=== PATIENT | male | born 1950 | race Caucasian/White ===

== ENCOUNTER 2020-11-16 09:09 | Outpatient (CLI) | payer MEDICARE, OTHER | END 2020-11-16 09:10 | disposition home or self-care (01) | LOC: DI 09:09 | PROVIDERS: ATTEND Student in an Organized Health Care Education/Training Program | DX: I10 Essential (primary) hypertension (principal); Z87.891 Personal history of nicotine dependence; I35.8 Other nonrheumatic aortic valve disorders | CPT/HCPCS: 93306 ==

== ENCOUNTER 2022-03-15 22:47 | Emergency (ER) | payer MEDICARE, OTHER ==
[2022-03-15] MEDS ORDERED: SODIUM CHLORIDE 0.9% 1,000 ML IV STA (23:12)
--- NOTE | 2022-03-15 23:14 | ED Physician Documentation ---
PD HPI SYNCOPE - Stated complaint Stated Complaint: C+ SYNCOPE - Chief complaint Chief Complaint: General - History obtained from History obtained from: Patient, EMS - History of Present Illness Witnessed: Witnessed Timing - onset: How many minutes ago (approximately 30-45 minutes INSTRUCTION DEAN) Duration: Seconds Preceding symptoms: Light headed, Generalized weakness Associated symptoms: None Contributing factors: Decreased PO intake, Just stood up Injury occurred: Fell Recently seen: Clinic - Additional information Additional information: BIBA for syncope. Patient has had generalized malaise, generalized weakness, decreased appetite since Saturday (3 days ago). He had syncopal episode 2 days ago and went to [facility] for evaluation; patient says tests were performed and results were unremarkable. He injured his back from the syncopal episode but no other injury. He was instructed to return today to [facility] for reevaluation, which he did, and some repeat testing was performed and patient says the results again were without concerning findings. He did test positive for COVID today at [facility], though. Tonight, approximately 30 minutes INSTRUCTION DEAN, patient was watching TV while sitting on his couch, got up and walked about five steps before having another syncopal event. He felt lightheaded and generalized weakness immediately upon standing up. Event was witnessed by , LOC was 15-20 seconds and then rapid return to baseline. EMS was called and they found patient AAOx3 and with stable/normal vital signs. Patient said he felt fine and wanted to just get into bed. Unfortunately, when he stood up, he again only managed to take a few steps before having yet another syncopal episode, lasting 10-20 seconds, followed by rapid recovery to baseline after being lj back down on the floor (EMS was next to patient and thus he did not fall). EMS notes temp 100.4 in field. Patient says he has only had Tmax in the 99s this week. He says his back continues to hurt from the first episode of syncope but that on my HPI he feels fine otherwise. He says he has had poor appetite and acknowledges not only decreased PO solids intake but also liquids for past few days. Review of Systems Constitutional: reports: Fever (unaware of fevers at home (except temperatures 99-100 range) , but 100.4 by medics in field) Cardiac: reports: Reviewed and negative Respiratory: reports: Reviewed and negative GI: reports: Reviewed and negative : denies: Incontinent Musculoskeletal: reports: Back pain. denies: Neck pain Neurologic: reports: Generalized weakness (resolved (just prior to syncope, he has generalized weakness)), Syncope. denies: Focal weakness, Numbness, Confused, Altered mental status, Headache, Head injury PD PAST MEDICAL HISTORY - Past Medical History Past Medical History: Yes Cardiovascular: High cholesterol - Present Medications Home Medications: Ambulatory Orders Medication Instructions Recorded Confirmed Atorvastatin [Lipitor] 03/16/22 hydroCHLOROthiazide [Hydrodiuril] 03/16/22 - Allergies Allergies/Adverse Reactions: Allergies Allergy/AdvReac Type Severity Reaction Status Date / Time No Known Drug Allergies Allergy Verified 03/15/22 23:09 - Living Situation Living Situation: reports: With spouse/s.o. 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, No motor deficit, No sensory deficit, Normal speech Eye Opening: Spontaneous Motor: Obeys Commands Verbal: Oriented GCS Score: 15 PD ED PE EXPANDED - Cardiac Cardiac: Murmur Present (1/6 MARLENE limited to right 2nd ICS) Results - Vitals Vitals: Vital Signs - 24 hr 03/15/22 03/16/22 03/16/22 22:52 01:02 01:13 Temperature 37.1 C Heart Rate 18 L 84 Heart Rate [ 89 Sitting] Heart Rate [ 90 Standing] Heart Rate [ 83 Supine] Respiratory 98 H 16 Rate Blood Pressure 138/82 H 160/87 H Blood Pressure 134/81 H [Sitting] Blood Pressure 104/67 [Standing] Blood Pressure 143/79 H [Supine] O2 Saturation 99 95 03/16/22 03:14 Temperature Heart Rate 91 Heart Rate [ Sitting] Heart Rate [ Standing] Heart Rate [ Supine] Respiratory 20 Rate Blood Pressure 164/89 H Blood Pressure [Sitting] Blood Pressure [Standing] Blood Pressure [Supine] O2 Saturation 97 Oxygen O2 Source Room air - EKG (time done) No standard instances Rate: Rate (enter#) (82) Rhythm: NSR [place]: Normal Intervals: Normal MI QRS: Normal Ischemia: Normal ST segments - Labs Labs: Laboratory Tests 03/15/22 03/15/22 03/15/22 23:24 23:24 23:24 WBC 15.1 H RBC 4.08 L Hgb 12.9 L Hct 38.4 L MCV 94.1 H MCH 31.6 H MCHC 33.6 RDW 13.0 Plt Count 231 MPV 9.2 Neut # (Auto) 13.2 H Lymph # (Auto) 0.8 L [place] # (Auto) 0.9 Eos # (Auto) 0.0 Baso # (Auto) 0.0 Absolute Nucleated RBC 0.00 Nucleated RBC % 0.0 Sodium 133 L Potassium 3.4 L Chloride 93 L Carbon Dioxide 28 Anion Gap 12.0 BUN 18 Creatinine 1.3 H Estimated GFR (MDRD) 54 L Glucose 149 H Calcium 8.6 Troponin I High Sens 8.2 PD MEDICAL DECISION MAKING - ED course Complexity details: reviewed results, re-evaluated patient, considered differential, d/w patient ED course: chest xray not performed tonight as patient says he had chest xray at [facility] few days ago and no concerning findings (and considering he has no new respiratory c/o such as cough, dyspnea). No recurrence of syncope nor near-syncope during ED stay, including when standing, ambulating. No concerning findings on blood tests. Leukocytosis is noted (wbc 15.1; patient and spouse seem to recall being told it was 16 at [facility]), BUN 18 with creatinine 1.3, and normal hs-cTn. No concerning findings on EKG. Cause of his syncopal episodes remains unclear at this time. His episodes thus far have been associated with when he just had stood up, with less than 30 seconds LOC and rapid return to baseline once he is to ground; dehydration might be playing a role given his decreased appetite and intake over past few days. There could also be a vagal component considering his back pain exacerbation whenever he stands, although the first syncopal episode caused the back pain, so this would only be a potential factor in the subsequent episodes of syncope. Cardiac etiology is possible though would seem unlikely given rapid recovery, lack of abnormality on cardiac monitoring and EKG, normal hs-cTn, and no concerning findings on exam (he does have a faint 1/6 MARLENE right 2nd ICS, and could possibly be a contributing factor though considering the very focal and faint nature of this finding, would doubt more than mild contributing factor if at all. Outpatient echo could further investigate this finding). Patient is given total of 2 liters NS, and he reports improvement in his back pain after 15mg IV toradol Results d/w patient. Advised to follow up with his primary care provider for reevaluation, even if symptoms have resolved. Return precautions reviewed. Departure - Departure Disposition: 01 Home, Self Care Clinical Impression: Syncope Condition: Good Instructions: ED Fainting Unkn Cause Follow-Up: OSEAS MUNOZ DO [Primary Care Provider] - Comments: The results of tonight's tests are without concern results. Amongst the tests performed tonight was a cardiac enzyme blood test (troponin) which was normal. The cause of your syncope (passing out) is not apparent at this time. Drink plenty of fluids to stay hydrated and monitor your blood pressure at home if you have a cuff. Follow up with your primary care provider for reevaluation , next available appointment. Discharge Date/Time: 03/16/22 04:05
[2022-03-15 23:31] LABS: BASOPHILS % (AUTO) 0.1 %; EOSINOPHILS % (AUTO) 0.1 %; HCT - HEMATOCRIT 38.4 % (42.0-52.0); HGB - HEMOGLOBIN 12.9 g/dL (14.0-18.0); LYMPHOCYTES # (AUTO) 0.8 10^3/uL (1.5-3.5); LYMPHOCYTES % (AUTO) 5.6 %; MEAN CORPUSCULAR HEMOGLOBIN 31.6 pg (27.0-31.0); MEAN CORPUSCULAR HGB CONC 33.6 g/dL (32.0-36.0); MEAN CORPUSCULAR VOLUME 94.1 fL (80.0-94.0); MEAN PLATELET VOLUME 9.2 fL (7.4-11.4); MONOCYTES # (AUTO) 0.9 10^3/uL (0.0-1.0); MONOCYTES % (AUTO) 5.8 %; NEUTROPHILS # (AUTO) 13.2 10^3/uL (1.5-6.6); NEUTROPHILS % (AUTO) 87.7 %; PLT - PLATELET COUNT 231 10^3/uL (130-450); RED BLOOD COUNT 4.08 10^6/uL (4.70-6.10); WHITE BLOOD COUNT 15.1 x10^3/uL (4.8-10.8)
[2022-03-15 23:41] LABS: CALCIUM 8.6 mg/dL (8.5-10.3); CREATININE 1.3 mg/dL (0.6-1.2); POTASSIUM 3.4 mmol/L (3.5-5.0)
[2022-03-16] MEDS ORDERED: KETOROLAC 30 MG/ML VIAL IVP STA (00:20)
[2022-03-16] MEDS ORDERED: KETOROLAC 15 MG/ML VIAL IVP STA (00:20)
[2022-03-16] MEDS ORDERED: SODIUM CHLORIDE 0.9% 1,000 ML IV STA (01:48)
[2022-03-16 03:15] VITALS: BP 164/89
== END 2022-03-16 04:05 | disposition home or self-care (01) ==
LOC: EDUNIT# → ED 22:47
DX: R55 Syncope and collapse (principal)
CPT/HCPCS: 36415; 80048; 84484; 85025; 93005; 96361; 96374; 99284

== ENCOUNTER → 2022-03-15 | Outpatient (CLI) | payer MEDICARE, OTHER | END | disposition critical access hospital (66) | LOC: EMS 22:30 | DX: R55 Syncope and collapse (principal); U07.1 COVID-19 | CPT/HCPCS: A0425; A0429 ==

== ENCOUNTER 2022-03-28 09:03 | Outpatient (CLI) | payer MEDICARE, OTHER | END 2022-03-28 09:04 | disposition home or self-care (01) | LOC: DI 09:03 | PROVIDERS: ATTEND Student in an Organized Health Care Education/Training Program | DX: R55 Syncope and collapse (principal); I35.0 Nonrheumatic aortic (valve) stenosis; I31.39 Other pericardial effusion (noninflammatory) | CPT/HCPCS: 93306 ==